=== PATIENT | female | born 1955 | race Caucasian/White ===

== ENCOUNTER 2020-10-14 14:30 | Emergency (ER) | payer MEDICARE, OTHER ==
[~2020-10-14] VITALS: Ht 160 cm; Wt 58.1 kg
[~2020-10-14 14:30] MED LIST: LOSARTAN; METFORMIN; SIMVISTATIN
[2020-10-14] MEDS ORDERED: LIDOCAINE HCL 1% 20 ML VIAL IJ ONE (15:15)
[2020-10-14] MEDS ORDERED: methylPREDNISolone ACETATE 40 MG VIAL IM ONE (15:15)
--- NOTE | 2020-10-14 15:22 | NUR ---
PT IS IN ROOM #1A. DR CABRALES EVALUATED THE PT.
[2020-10-14] MEDS ORDERED: methylPREDNISolone ACETATE 40 MG VIAL ONE (15:32)
[2020-10-14] MEDS ORDERED: LIDOCAINE HCL 1% 20 ML VIAL ONE (15:32)
[2020-10-14] MEDS ORDERED: OXYC-128 PO (16:05)
--- NOTE | 2020-10-14 16:11 | NUR ---
PT WAS D/C'd TO HOME AFTER DR CABRALES EVALUATION. D/C INSTRUCTIONS GIVEN TO THE PT BY DR CABRALES.
[2020-10-14 16:12] VITALS: BP 132/77
== END 2020-10-14 16:26 | disposition home or self-care (01) ==
LOC: ER 14:37
DX: M70.61 Trochanteric bursitis, right hip (principal); E78.5 Hyperlipidemia, unspecified; I10 Essential (primary) hypertension; E11.9 Type 2 diabetes mellitus without complications; Z79.84 Long term (current) use of oral hypoglycemic drugs
CPT/HCPCS: 20610; 73502; 96372; 99283; J1030; J3490; A4663